=== PATIENT | male | born 1955 | race Caucasian/White ===

== ENCOUNTER 2017-07-25 23:18 | Emergency (ER) | payer MEDICAID, MEDICARE ==
[~2017-07-25] VITALS: Ht 182.9 cm; Wt 81.0 kg
[~2017-07-25 23:18] MED LIST: ARIP15TA2 PO; DIVA500T3 PO; INSLAN SQ; VENL150C2 PO
[2017-07-26] MEDS ORDERED: CLONIDINE 0.1MG TABLET PO ONE (06:30)
[2017-07-26 07:45] VITALS: BP 166/91
== END 2017-07-26 08:10 | disposition home or self-care (01) ==
LOC: ER 23:26
DX: F32.9 Major depressive disorder, single episode, unspecified (principal); I10 Essential (primary) hypertension; F17.200 Nicotine dependence, unspecified, uncomplicated; E11.9 Type 2 diabetes mellitus without complications; Z79.4 Long term (current) use of insulin
CPT/HCPCS: 99284